=== PATIENT | female | born 1980 | race Caucasian/White ===

== ENCOUNTER 2020-05-26 16:28 | Emergency (ER) | payer BC, SELFPAY ==
[2020-05-26 16:35] VITALS: BP 220/110; PULSE 96; RESP 16; TEMP 36.4; O2SAT 100
--- NOTE | 2020-05-26 16:35 | ED.GENADULT ---
HPI - General Adult General Chief complaint: Extremity Injury, Upper Stated complaint: R SHOULDER PAIN Time Seen by Provider: 05/26/20 16:44 Source: patient and RN notes reviewed Mode of arrival: ambulatory Limitations: no limitations History of Present Illness HPI narrative: 39-year-old female presents with complaints of right shoulder pain for the past 2 days. Malik reports chronic pain and repetitive usage of RUE at work. Denies numbness or tingling. No known injury. Hurts with movement of shoulder. Denies radiating pain. No loss of mobility. No swelling. Exacerbating factor is movement. Relieving factor is rest and pain medication. The dominant hand is the RIGHT HAND. Remains active. The patient reports she have not been diagnosed with COVID-19. The patient reports she is not waiting for the results of a COVID-19 lab test. The patient reports she do not have fever, chills, weakness, or fatigue. The patient reports she do not have a new or worsening cough or shortness of breath. Denies chest pain. The patient reports she do not have any rhinorrhea, congestion, sore throat, loss of taste, nausea, vomiting, abdominal pain, and diarrhea. Tolerating po intake well. Denies recent traveling. Denies concerns for COVID-19 or exposures been home with limited outdoor exposure except for essential household needs, work, and return home. At this time, patient is not suspected of having COVID-19. Some parts of this dictation were generated by voice recognition software and may contain typographical and/or grammatical inaccuracies. Related Data Allergies Allergy/AdvReac Type Severity Reaction Status Date / Time amoxicillin [From Augmentin] Allergy Intermediate Hives Verified 05/26/20 16:34 clavulanic acid Allergy Intermediate Hives Verified 05/26/20 16:34 [From Augmentin] codeine Allergy Unknown HIVES Verified 05/26/20 16:34 Review of Systems Review of Systems: Narrative: CONSTITUTIONAL: Denies fever, chills, sweats. EYES: Denies visual changes, redness, discharge. ENT: Denies rhinorrhea, congestion, sore throat, otalgia. CARDIOVASCULAR: Denies chest pain, palpitations, edema. RESPIRATORY: Denies dyspnea, wheezing, cough. GASTROINTESTINAL: Denies abdominal pain, nausea, vomiting, diarrhea. SKIN: Denies rash or itching. MUSCULOSKELETAL: Denies acute back pain or myalgia. Complains of RT shoulder pain. NEUROLOGIC: Denies numbness or focal weakness. PSYCHIATRIC: Denies anxiety or depression. All other systems reviewed & are unremarkable except as noted in HPI and below. [facility] Past Medical History Medical History (Updated 05/27/20 @ 00:00 by Vangie Samuel) Ankle fracture, right Elevated blood pressure reading in office with white coat syndrome, without diagnosis of hypertension Fracture of right shoulder Surgical History Surgical History H/O LEEP H/O tubal ligation Previous section x2 Family History Family History (Updated 05/26/20 @ 16:58 by JOE Parmar) Father , [place] Hypertension Acute myocardial infarction Diabetes mellitus Mother Alive and well Social History Social History (Updated 05/26/20 @ 16:59 by JOE Parmar) Smoking packs per day: 0.25 Smoking cigarettes per day: 5.0 Years smoked: 20 Smoking pack-years: 5.00 Smoking status: Current every day smoker Tobacco type: cigarettes Second hand tobacco smoke exposure: Yes Alcohol intake: current Substance use: never Living arrangements: with family Occupation/Education: occupation Gender identity (if verbalized by the patient): Female Comments At time of signature, agree with nurse past medical, surgical, social, and family history. There is no relevant family history pertinent to the presenting complaint. Exam Narrative: Exam Narrative: GENERAL: This is a well-nourished, well-developed patient, in no apparen
[2020-05-26 16:46] VITALS: BP 180/110
== END 2020-05-26 17:03 | disposition home or self-care (01) ==
PROVIDERS: Emergency Provider Nurse Practitioner Family
DX: M25.511 Pain in right shoulder (principal); F17.210 Nicotine dependence, cigarettes, uncomplicated
CPT/HCPCS: 99213; G0463

== ENCOUNTER 2021-05-11 16:35 | Emergency (ER) | payer OTHER, BC, SELFPAY ==
--- NOTE | ~2021-05-11 | XR_ITS ---
EXAMINATION: XR knee LT min 4V DATE: 05/11/2021 16:59 INDICATION: Lateral left knee pain post twisting injury TECHNIQUE: Anteroposterior, 2 oblique and crosstable lateral views of the left knee were obtained COMPARISON: None. FINDINGS: Left knee alignment is normal. No fracture. No joint effusion/layering lipohemarthrosis. Soft tissue s are unremarkable. IMPRESSION: 1. Negative left knee radiographs. Reviewed, dictated and finalized at location A. [facility] RN
[2021-05-11 16:40] VITALS: BP 141/88; PULSE 82; RESP 20; TEMP 36.8; O2SAT 100
--- NOTE | 2021-05-11 16:57 | ED.GENADULT ---
HPI - General Adult General Chief complaint: Extremity Injury, Lower Stated complaint: INJURED L KNEE Time Seen by Provider: 05/11/21 16:37 Source: patient Limitations: no limitations History of Present Illness HPI narrative: Patient presents for evaluation of left knee pain. Indicates she was working just prior to arrival when she twisted her left knee. She has a history of a torn lateral meniscus in the left knee which was removed by Dr Hughes in January of this year. She did well postoperatively and does not have any significant ongoing pain. She states her current pain level is 9 out of 10 in severity, without descriptive quality or radicular component. No paresthesias. Movement makes her pain worse. She is able to ambulate. No additional complaints or concerns Related Data Home Medications Medication Instructions Recorded Confirmed amlodipine 05/11/21 buspirone mg 05/11/21 rosuvastatin mg 05/11/21 valsartan 05/11/21 Allergies Allergy/AdvReac Type Severity Reaction Status Date / Time amoxicillin [From Augmentin] Allergy Intermediate Hives Verified 05/11/21 16:40 clavulanic acid Allergy Intermediate Hives Verified 05/11/21 16:40 [From Augmentin] codeine Allergy Unknown HIVES Verified 05/11/21 16:40 Review of Systems Review of Systems: CONSTITUTIONAL: Denies fever, chills, or sweats. EYES: Denies visual changes, redness, or discharge. ENT: Denies rhinorrhea, congestion, sore throat, or otalgia. CARDIOVASCULAR: Denies chest pain, palpitations, or edema. RESPIRATORY: Denies cough or dyspnea. GASTROINTESTINAL: Denies abdominal pain, nausea, vomiting, or diarrhea. GENITOURINARY: Denies dysuria or hematuria. SKIN: Denies rash or itching. MUSCULOSKELETAL: Reports left knee pain. Denies back pain or myalgia. NEUROLOGIC: Denies headache, numbness, dizziness, or weakness. PSYCHIATRIC: Denies anxiety or depression. [facility] Past Medical History Medical History (Updated 05/11/21 @ 17:15 by Ovidio Devi, JOE, SAURABH) Ankle fracture, right Anxiety Elevated blood pressure reading in office with white coat syndrome, without diagnosis of hypertension Fracture of right shoulder Hypertension Surgical History Surgical History H/O LEEP H/O tubal ligation History of lateral meniscus repair of left knee Previous section x2 Family History Family History Father , [place] Hypertension Acute myocardial infarction Diabetes mellitus Mother Alive and well Social History Social History Smoking packs per day: 0.25 Smoking cigarettes per day: 5.0 Years smoked: 20 Smoking pack-years: 5.00 Smoking status: Current every day smoker Tobacco type: cigarettes Second hand tobacco smoke exposure: Yes Alcohol intake: current Substance use: never Gender identity (if verbalized by the patient): Female Exam Narrative: GENERAL: Well-appearing, well-nourished, and in no acute distress. HEAD: Normocephalic, atraumatic. EYES: PERRLA and EOMI. ENT: Nares clear, no rhinorrhea or epistaxis. Mucous membranes moist. Oropharynx without tonsillar hypertrophy exudate or other lesions. Bilateral TMs pearly acosta nonbulging NECK: Supple. No adenopathy or masses. No carotid bruits or JVD CHEST: Clear to auscultation. No respiratory distress. No wheezes rales or rhonchi HEART: Regular rate and rhythm. No murmur heard. Normal peripheral pulses. ABDOMEN: Soft, nontender, nondistended, normal active bowel sounds. EXTREMITIES: Normal range of motion. No edema. Tenderness noted in the medial, lateral and anterior aspects of the left knee without crepitus or deformity. No significant joint laxity. SKIN: Warm, dry, no rash. NEURO: No focal deficits. Alert and oriented x3. PSYCH: Normal mood and affect. Course Course E
[2021-05-11] MEDS: KETOROLAC (*BKC) 60 MG/2 ML VIAL IM (17:03)
== END 2021-05-11 17:28 | disposition home or self-care (01) ==
PROVIDERS: Emergency Provider Nurse Practitioner; PCP Family Medicine
DX: S86.912A Strain of unspecified muscle(s) and tendon(s) at lower leg level, left leg, initial encounter (principal); X50.9XXA Other and unspecified overexertion or strenuous movements or postures, initial encounter; Y99.0 Civilian activity done for income or pay; I10 Essential (primary) hypertension; F17.210 Nicotine dependence, cigarettes, uncomplicated; F41.9 Anxiety disorder, unspecified
CPT/HCPCS: 73564; 96372; 99213; G0463; J1885; L1830